=== PATIENT | male | born 1990 | race Caucasian/White ===

== ENCOUNTER 2016-02-24 18:49 | Emergency (ER) | payer OTHER ==
[2016-02-24] MEDS ORDERED: IBUPROFEN 600 MG TABLET PO ONE (18:58)
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
[2016-02-24] MEDS ORDERED: MORPHINE SULFATE 10 MG/ML INJ IV ONE (19:58)
[2016-02-24] MEDS ORDERED: HYDROCODONE/ACETAMINOPHEN 5-325 MG 6 TAB/DSPK PO PRN (19:58)
[2016-02-24 20:48] VITALS: BP 128/69
== END 2016-02-24 20:46 | disposition home or self-care (01) ==
LOC: ER 18:49
DX: S29.019A Strain of muscle and tendon of unspecified wall of thorax, initial encounter (principal); S39.012A Strain of muscle, fascia and tendon of lower back, initial encounter; M54.9 Dorsalgia, unspecified; V89.2XXA Person injured in unspecified motor-vehicle accident, traffic, initial encounter; F17.210 Nicotine dependence, cigarettes, uncomplicated
CPT/HCPCS: 99284; 96374; 72110; 72070; J2270

== ENCOUNTER 2016-05-01 14:58 | Emergency (ER) | payer SELFPAY ==
--- NOTE | 2016-05-01 15:08 | ER Document Report ---
ED Medical Screen (RME) - General Stated Complaint: PENILE PROBLEM Mode of Arrival: Ambulatory Information source: Patient Notes: pt presents to the ED with skin tear to left side and tip of his penis on . reports area looks worse. He reports increased pain with erection and when he voids. No f/v/d . reports it happended during intercourse, she has been putting bacitracin on the wound and reports it looks worse now. I have greeted and performed a rapid initial assessment of this patient. A comprehensive ED assessment and evaluation of the patient, analysis of test results and completion of the medical decision making process will be conducted by additional ED providers. TRAVEL OUTSIDE OF THE [place] IN LAST 30 DAYS: No - Related Data Allergies/Adverse Reactions: No Known Allergies Allergy (Verified 05/01/16 15:06) Past Medical History - Immunizations Hx Diphtheria, Pertussis, Tetanus Vaccination: No Physical Exam - Vital signs Vitals: Temp Pulse Resp BP Pulse Ox 98.5 F 69 15 136/51 H 95 05/01/16 15:03 05/01/16 15:03 05/01/16 15:03 05/01/16 15:03 05/01/16 15:03 Course - Vital Signs Vital signs: Temp Pulse Resp BP Pulse Ox 98.5 F 69 15 136/51 H 95 05/01/16 15:03 05/01/16 15:03 05/01/16 15:03 05/01/16 15:03 05/01/16 15:03
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
[2016-05-01 17:40] VITALS: BP 112/66
== END 2016-05-01 17:25 | disposition home or self-care (01) ==
LOC: ER 14:58
DX: S30.812A Abrasion of penis, initial encounter (principal); F17.210 Nicotine dependence, cigarettes, uncomplicated; X58.XXXA Exposure to other specified factors, initial encounter
CPT/HCPCS: 99283

== ENCOUNTER → 2016-06-22 | Outpatient (CLI) | payer SELFPAY | LOC: OD 10:55 | PROVIDERS: ATTEND Obstetrics & Gynecology | DX: M25.551 Pain in right hip (principal); M25.561 Pain in right knee; M51.36 Other intervertebral disc degeneration, lumbar region ==